=== PATIENT | male | born 1980 | race Asian ===

== ENCOUNTER 2016-08-18 15:07 | Emergency (ER) | payer BC ==
[~2016-08-18] VITALS: Ht 175.3 cm; Wt 74.4 kg
[2016-08-18 15:25] VITALS: BP 102/60; PULSE 118; RESP 22; TEMP 101.8; O2SAT 94
--- NOTE | 2016-08-18 15:35 | NUR ---
Patient triaged and placed in waiting room. Patient appears in no acute distress at this time. awaiting available bed, and MD notified of need for MSE.
[2016-08-18 16:20] LABS: BASOPHILS % (AUTO) 0.5 % (0.0-2.0); EOSINOPHILS % (AUTO) 0.3 % (0.0-4.0); HEMATOCRIT 43.5 % (36-54); HEMOGLOBIN 14.5 g/dL (14.0-18.0); LYMPHOCYTES # (AUTO) 1.2 K/uL (1.0-5.5); LYMPHOCYTES % (AUTO) 16.5 % (20.5-51.5); MEAN CORPUSCULAR HEMOGLOBIN 29 pg (27-31); MEAN CORPUSCULAR HGB CONC 33 % (32-36); MEAN CORPUSCULAR VOLUME 87 fL (79.0-98.0); MONOCYTES # (AUTO) 0.5 K/uL (0.0-1.0); MONOCYTES % (AUTO) 7.5 % (1.7-9.3); NEUTROPHILS # (AUTO) 5.5 K/uL (1.8-7.7); NEUTROPHILS % (AUTO) 75.2 % (40.0-70.0); PLATELET COUNT (AUTO) 206 K/uL (130-430); RED BLOOD CELL COUNT(AUTO) 5.02 MIL/uL (4.2-6.2); RED CELL DISTRIBUTION WIDTH 11.3 % (9.0-15.0); WHITE BLOOD COUNT (AUTO) 7.2 K/uL (4.8-10.8)
--- NOTE | 2016-08-18 16:22 | NUR ---
BROUGHT BACK TO BED #8 AND REPORT GIVEN TO TIANNA
[2016-08-18 16:25] LABS: CALCIUM 8.6 mg/dL (8.4-11.0); CREATININE 1.09 mg/dL (0.55-1.30); POTASSIUM 3.2 mmol/L (3.5-5.1)
[2016-08-18 16:30] LABS: TOTAL BILIRUBIN 0.9 mg/dL (0.0-1.0); TOTAL PROTEIN, SERUM 8.1 g/dL (6.4-8.3)
--- NOTE | 2016-08-18 16:31 | NUR ---
Pt presents to ED with c/o fever x3 days , coughing, seen at urgent care and went home with antibiotic Rx, max T 101.8 today. 500mg tylenol taken at 1430 per pt. A&Ox4, denies SOB or chestpain, denies N/V/D. Skin intact. Will continue to monitor
--- NOTE | 2016-08-18 16:40 | NUR ---
Dr Riley at bedside examining pt
[2016-08-18] MEDS ORDERED: NACL 0.9% 1,000 ML IV ONE (16:45)
[2016-08-18] MEDS ORDERED: POTASSIUM CHLORIDE 20 MEQ TAB.PRT.SR PO ONE (16:45)
--- NOTE | 2016-08-18 16:50 | NUR ---
DR SAMUELS AT BEDSIDE SPEAKING WITH PT ABOUT TEST RESULTS
[2016-08-18 17:02] VITALS: BP 131/67; PULSE 97; RESP 21; TEMP 98.2; O2SAT 95
--- NOTE | 2016-08-18 17:03 | NUR ---
Patient given written and verbal discharge instructions and verbalizes understanding. ER MD discussed with patient the results and treatment provided. Patient in stable condition. ID arm band removed. Rx of LEVOFLOXACIN, IBUPROFEN given. Patient educated on pain management and to follow up with PMD. Pain Scale 0/10. Opportunity for questions provided and answered.
== END 2016-08-18 17:02 | disposition home or self-care (01) ==
LOC: SED 15:07
DX: J40 Bronchitis, not specified as acute or chronic (principal); E87.6 Hypokalemia; E87.1 Hypo-osmolality and hyponatremia; E86.0 Dehydration; Z87.891 Personal history of nicotine dependence
CPT/HCPCS: 36415; 71010; 80053; 85025; 99285

== ENCOUNTER 2018-11-04 17:40 | Emergency (ER) | payer BC ==
[~2018-11-04] VITALS: Ht 170.2 cm; Wt 113.9 kg
[2018-11-04 18:02] VITALS: BP_SYST 158
[2018-11-04 19:16] LABS: BASOPHILS # (AUTO) 0.1 K/uL (0.0-0.2); BASOPHILS % (AUTO) 0.6 % (0.0-2.0); EOSINOPHILS # (AUTO) 0.1 K/uL (0.0-0.4); EOSINOPHILS % (AUTO) 1.3 % (0.0-4.0); HEMATOCRIT 45.9 % (36-54); HEMOGLOBIN 15.6 g/dL (14.0-18.0); LYMPHOCYTES # (AUTO) 2.8 K/uL (1.0-5.5); LYMPHOCYTES % (AUTO) 31.4 % (20.5-51.5); MEAN CORPUSCULAR HEMOGLOBIN 30 pg (27-31); MEAN CORPUSCULAR HGB CONC 34 % (32-36); MEAN CORPUSCULAR VOLUME 89 fL (79.0-98.0); MONOCYTES # (AUTO) 0.5 K/uL (0.0-1.0); MONOCYTES % (AUTO) 5.8 % (1.7-9.3); NEUTROPHILS # (AUTO) 5.5 K/uL (1.8-7.7); NEUTROPHILS % (AUTO) 60.9 % (40.0-70.0); PLATELET COUNT (AUTO) 266 K/uL (130-430); RED BLOOD CELL COUNT(AUTO) 5.17 MIL/uL (4.2-6.2); RED CELL DISTRIBUTION WIDTH 12.1 % (9.0-15.0)
[2018-11-04 19:23] LABS: ANION GAP 9 (5-15); CALCIUM 9.2 mg/dL (8.4-11.0); CHLORIDE 101 mmol/L (98-107); CREATININE 0.94 mg/dL (0.55-1.30); GLUCOSE 104 mg/dL (70-99); POTASSIUM 4.1 mmol/L (3.5-5.1); SODIUM SERUM 139 mmol/L (136-145); UREA NITROGEN, BLOOD 13 mg/dL (8-21)
[2018-11-04 19:26] LABS: GFR AFRICAN AMERICAN 116 mL/min (>90)
[2018-11-04 19:31] LABS: ALANINE AMINOTRANSFERASE 23 U/L (12-78); ASPARTATE AMINOTRANSFERASE 16 U/L (10-37); LIPASE 111 U/L (73-393); TOTAL BILIRUBIN 0.7 mg/dL (0.0-1.0)
[2018-11-04] MEDS ORDERED: IPRATROPIUM/ALBUTEROL SULFATE 3 ML AMPUL.NEB (DUONEB) INH ONE (20:30)
[2018-11-04] MEDS ORDERED: IBUPROFEN 800 MG TABLET PO ONE (21:30)
[2018-11-04 21:33] VITALS: BP_SYST 142
== END 2018-11-04 21:33 | disposition home or self-care (01) ==
LOC: SED 17:40
DX: R07.89 Other chest pain (principal); F41.9 Anxiety disorder, unspecified; R03.0 Elevated blood-pressure reading, without diagnosis of hypertension
CPT/HCPCS: 36415; 71045; 80053; 83690; 84484; 85025; 85379; 94640; 99284; J7620